=== PATIENT | female | born 1975 | race Caucasian/White ===

== ENCOUNTER 2016-03-10 16:42 | Emergency (ER) | payer MEDICAID ==
[~2016-03-10] VITALS: Ht 157.5 cm; Wt 54.4 kg
[2016-03-10 17:20] VITALS: BP 121/71
[2016-03-10] MEDS ORDERED: TRAMADOL HCL 50 MG TABLET PO ONE (18:00)
[2016-03-10] MEDS ORDERED: IBUPROFEN 600 MG TABLET PO ONE ×2 (18:00→18:24)
[2016-03-10] MEDS ORDERED: TRAMADOL HCL 50 MG TABLET ONE (18:24)
[2016-03-10] MEDS ORDERED: TDAP [DIPH/PERTUSSIS/TET] 0.5 ML VIAL IM ONE ×2 (18:24→18:30)
== END 2016-03-10 19:22 | disposition home or self-care (01) ==
LOC: ER 16:44
DX: L03.011 Cellulitis of right finger (principal); S61.236A Puncture wound without foreign body of right little finger without damage to nail, initial encounter; Z59.0 Homelessness; W26.0XXA Contact with knife, initial encounter; Y93.89 Activity, other specified; Y92.89 Other specified places as the place of occurrence of the external cause; Y99.8 Other external cause status
CPT/HCPCS: 73140; 90471; 90715; 99284; A4606; Z7610

== ENCOUNTER 2016-03-12 17:33 | Emergency (ER) | payer MEDICAID ==
[~2016-03-12] VITALS: Ht 157.5 cm; Wt 70.3 kg
[2016-03-12] MEDS ORDERED: ONDANSETRON HCL/PF 4 MG/2 ML VIAL IV ONE (18:00)
[2016-03-12] MEDS ORDERED: PIPERACILLIN /TAZOBACTAM 3.375 G in IV D5W 50 ML IV ONE (18:00)
[2016-03-12] MEDS ORDERED: VANCOMYCIN 1 GM in IV D5W 250 ML IV ONE (18:00)
[2016-03-12] MEDS ORDERED: IV NS 0.9% 1,000 ML BAG IV ONE (18:00)
[2016-03-12] MEDS ORDERED: MORPHINE SULFATE INJ 10 MG/ML DISP.SYRIN IV ONE (18:00)
[2016-03-12 18:05] LABS: BASOPHILS % (AUTO) 0.4 % (0.0-2.0); DIFF TOTAL % 100 %; EOSINOPHILS # (AUTO) 0.1 /CMM (0.0-0.7); EOSINOPHILS % (AUTO) 0.5 % (0.0-6.0); HEMATOCRIT 38 % (33-45); HEMOGLOBIN 12.6 g/dL (11.5-14.8); LYMPHOCYTES # (AUTO) 1.2 /CMM (0.8-4.8); LYMPHOCYTES % (AUTO) 11.2 % (20.0-44.0); MEAN CORPUSCULAR HEMOGLOBIN 32 PG (26.0-33.0); MEAN CORPUSCULAR HGB CONC 33 g/dl (31.0-36.0); MEAN CORPUSCULAR VOLUME 98 fL (82-100); MONOCYTES # (AUTO) 0.4 /CMM (0.1-1.30); NEUTROPHILS # (AUTO) 9.2 /CMM (1.8-8.9); NEUTROPHILS % (AUTO) 83.9 % (43.0-81.0); PLATELET COUNT (AUTO) 312 /CMM (150-450); RED BLOOD CELL COUNT(AUTO) 3.92 MIL/uL (4.0-5.2); WHITE BLOOD COUNT (AUTO) 10.9 K/uL (4.3-11.0)
[2016-03-12] MEDS ORDERED: CEPH-570 PO (18:08)
[2016-03-12] MEDS ORDERED: TRAM50TA2 PO (18:08)
[2016-03-12] MEDS ORDERED: ONDANSETRON HCL/PF 4 MG/2 ML VIAL ONE (18:09)
[2016-03-12] MEDS ORDERED: IV SET PRIMARY PUMP SET 1 EA INFUS.SET MC ONE (18:09)
[2016-03-12] MEDS ORDERED: HYDROMORPHONE 1 MG/1 ML DISP.SYRIN ONE (18:09)
[2016-03-12] MEDS ORDERED: IV NS 0.9% 1,000 ML ONE (18:09)
[2016-03-12 18:23] LABS: INR 0.93 (0.87-1.13); PROTHROMBIN TIME 9.8 SECS (9.5-12.7)
[2016-03-12 18:27] LABS: LACTIC ACID 0.8 mmol/L (0.4-2.0)
[2016-03-12] MEDS ORDERED: HYDROMORPHONE 1 MG/1 ML DISP.SYRIN IV ONE (18:30)
[2016-03-12 18:36] LABS: ALBUMIN 3.2 g/dL (3.4-5.0); BILIRUBIN,DIRECT 0.1 mg/dL (0.0-0.2); BILIRUBIN,TOTAL 0.3 mg/dL (0.2-1.0); CALCIUM, SERUM 8.4 mg/dL (8.5-10.1); CREATININE 0.7 mg/dL (0.6-1.3); INDIRECT BILIRUBIN 0.2 mg/dL (0.0-1.1); POTASSIUM 3.3 mmol/L (3.5-5.1); TOTAL PROTEIN, SERUM 7.7 g/dL (6.4-8.2)
[2016-03-12] MEDS ORDERED: POTASSIUM CHLORIDE 20 MEQ TAB.PRT.SR PO ONE ×2 (19:00→19:38)
[2016-03-12 19:12] VITALS: BP 137/89
== END 2016-03-12 19:50 ==
LOC: ER 17:36
DX: S61.431A Puncture wound without foreign body of right hand, initial encounter (principal); L03.113 Cellulitis of right upper limb; M65.821 Other synovitis and tenosynovitis, right upper arm; F17.210 Nicotine dependence, cigarettes, uncomplicated; Y99.8 Other external cause status; W26.0XXA Contact with knife, initial encounter; Y93.89 Activity, other specified; Y92.89 Other specified places as the place of occurrence of the external cause; Z59.0 Homelessness
CPT/HCPCS: 36415; 73090; 80048; 80076; 83605; 85025; 85730; 87040 ×2; 93971; 96365; 96367; 96375; 99285; A4606; J1170; J2405; J2543; J3370; J7030; J7060 ×2; Z7610; 87081-TC

== ENCOUNTER 2017-08-13 13:12 | Emergency (ER) | payer MEDICAID ==
[~2017-08-13] VITALS: Ht 157.5 cm; Wt 68.9 kg
[~2017-08-13 13:12] MED LIST: CEPH-570 PO; TRAM50TA2 PO
[2017-08-13 13:15] VITALS: BP 142/97
== END 2017-08-13 16:54 | disposition home or self-care (01) ==
LOC: ER 13:13
DX: S80.212A Abrasion, left knee, initial encounter (principal); M25.512 Pain in left shoulder; F17.200 Nicotine dependence, unspecified, uncomplicated; Z59.0 Homelessness; V13.4XXA Pedal cycle driver injured in collision with car, pick-up truck or van in traffic accident, initial encounter; Y93.89 Activity, other specified; Y92.488 Other paved roadways as the place of occurrence of the external cause; Y99.8 Other external cause status
CPT/HCPCS: 73030; 73564; 99284; A4606; Z7610

== ENCOUNTER 2018-03-15 13:23 | Emergency (ER) | payer SELFPAY ==
[~2018-03-15] VITALS: Ht 157.5 cm; Wt 67.1 kg
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
[2018-03-15] MEDS ORDERED: HYDROCODONE/APAP 5/325MG 1 EACH TABLET ONE (13:43)
[2018-03-15] MEDS ORDERED: KETOROLAC TROMETHAMINE INJ 30 MG/ML VIAL ONE (13:43)
--- NOTE | 2018-03-15 13:50 | NUR ---
PER PATIENT REQUEST CALLED DAUGHTER [facility] [phone] TO NOTIFY IN ER
[2018-03-15] MEDS ORDERED: HYDROCODONE/APAP 5/325MG 1 EACH TABLET PO ONE (14:00)
[2018-03-15] MEDS ORDERED: KETOROLAC TROMETHAMINE INJ 60 MG/2 ML VIAL IM ONE (14:00)
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
[2018-03-15 14:39] VITALS: BP 133/99
== END 2018-03-15 14:40 | disposition home or self-care (01) ==
LOC: ER 13:28
DX: S83.8X2A Sprain of other specified parts of left knee, initial encounter (principal); F17.200 Nicotine dependence, unspecified, uncomplicated; Z59.0 Homelessness; V29.49XA Motorcycle driver injured in collision with other motor vehicles in traffic accident, initial encounter; Y93.55 Activity, bike riding; Y92.89 Other specified places as the place of occurrence of the external cause; Y99.8 Other external cause status
CPT/HCPCS: 29505; 73564; 73590; 96372; 99283; A4606; J1885